=== PATIENT | male | born 1995 | race Caucasian/White ===

== ENCOUNTER 2019-11-15 21:31 | Emergency (ER) | payer SELFPAY ==
[~2019-11-15] VITALS: Ht 167.6 cm; Wt 93.0 kg
[2019-11-15 21:48] VITALS: Ht 167.6 cm; Wt 93.0 kg
[2019-11-16 00:38] VITALS: BP 139/91
== END 2019-11-16 00:38 | disposition home or self-care (01) ==
LOC: ED 21:31
DX: H61.23 Impacted cerumen, bilateral (principal); H92.02 Otalgia, left ear